=== PATIENT | female | born 1970 | race Caucasian/White ===

== ENCOUNTER → 2017-10-20 | Outpatient (CLI) | payer OTHER, SELFPAY | PROVIDERS: Visit Provider Emergency Medicine | DX: Z79.899 Other long term (current) drug therapy (principal) | CPT/HCPCS: 80305; 80346; 80364; G0480 ==

== ENCOUNTER → 2017-11-24 14:59 | Outpatient (REF) | payer OTHER, SELFPAY ==
[2017-11-24 21:30] LABS: Amphetamine/Metha Screen,Urine Negative ng/mL (<1000); Barbiturates Screen,Urine Negative ng/mL (<200); Benzodiazepines Screen,Urine Negative ng/mL (200); Cannabinoid Screen,Urine Negative ng/mL (<50); Cocaine Screen,Urine Negative ng/g (<300); Methadone Screen,Urine Negative ng/mL (<300); Opiate Screen,Urine Positive ng/mL (<300); Phencyclidine Screen,Urine Negative ng/mL (<25)
== END ==
LOC: LAB 14:59
PROVIDERS: Visit Provider Emergency Medicine
DX: Z79.899 Other long term (current) drug therapy (principal)
CPT/HCPCS: 80305

== ENCOUNTER → 2017-12-21 13:37 | Outpatient (REF) | payer OTHER, SELFPAY ==
[2017-12-21 20:18] LABS: Amphetamine/Metha Screen,Urine Negative ng/mL (<1000); Barbiturates Screen,Urine Negative ng/mL (<200); Benzodiazepines Screen,Urine Negative ng/mL (200); Cannabinoid Screen,Urine Negative ng/mL (<50); Cocaine Screen,Urine Negative ng/g (<300); Methadone Screen,Urine Negative ng/mL (<300); Opiate Screen,Urine Negative ng/mL (<300); Phencyclidine Screen,Urine Negative ng/mL (<25)
== END ==
LOC: LAB 13:37
PROVIDERS: Visit Provider Emergency Medicine
DX: Z79.899 Other long term (current) drug therapy (principal)
CPT/HCPCS: 80305

== ENCOUNTER → 2018-01-19 14:11 | Outpatient (REF) | payer OTHER, SELFPAY ==
[2018-01-19 16:11] LABS: Amphetamine/Metha Screen,Urine Negative ng/mL (<1000); Barbiturates Screen,Urine Negative ng/mL (<200); Benzodiazepines Screen,Urine Negative ng/mL (200); Cannabinoid Screen,Urine Negative ng/mL (<50); Cocaine Screen,Urine Negative ng/g (<300); Methadone Screen,Urine Negative ng/mL (<300); Opiate Screen,Urine Positive ng/mL (<300); Phencyclidine Screen,Urine Negative ng/mL (<25)
== END ==
LOC: LAB 14:11
PROVIDERS: Visit Provider Emergency Medicine
DX: Z79.899 Other long term (current) drug therapy (principal)
CPT/HCPCS: 80305

== ENCOUNTER → 2018-03-29 15:02 | Outpatient (REF) | payer OTHER, SELFPAY ==
[2018-03-29 18:53] LABS: Amphetamine/Metha Screen,Urine Negative ng/mL (<1000); Barbiturates Screen,Urine Negative ng/mL (<200); Benzodiazepines Screen,Urine Negative ng/mL (200); Cannabinoid Screen,Urine Negative ng/mL (<50); Cocaine Screen,Urine Negative ng/g (<300); Methadone Screen,Urine Negative ng/mL (<300); Opiate Screen,Urine Negative ng/mL (<300); Phencyclidine Screen,Urine Negative ng/mL (<25)
== END ==
LOC: LAB 15:02
PROVIDERS: Visit Provider Emergency Medicine
DX: Z79.899 Other long term (current) drug therapy (principal)
CPT/HCPCS: 80305

== ENCOUNTER → 2018-04-27 10:26 | Outpatient (REF) | payer OTHER, SELFPAY ==
[2018-04-27 16:16] LABS: Amphetamine/Metha Screen,Urine Negative ng/mL (<1000); Barbiturates Screen,Urine Negative ng/mL (<200); Benzodiazepines Screen,Urine Negative ng/mL (200); Cannabinoid Screen,Urine Negative ng/mL (<50); Cocaine Screen,Urine Negative ng/g (<300); Methadone Screen,Urine Negative ng/mL (<300); Opiate Screen,Urine Negative ng/mL (<300); Phencyclidine Screen,Urine Negative ng/mL (<25)
== END ==
LOC: LAB 10:26
PROVIDERS: Visit Provider Emergency Medicine
DX: Z79.899 Other long term (current) drug therapy (principal)
CPT/HCPCS: 80305

== ENCOUNTER → 2018-05-27 14:57 | Outpatient (REF) | payer OTHER, SELFPAY ==
[2018-05-27 18:52] LABS: Amphetamine/Metha Screen,Urine Negative ng/mL (<1000); Barbiturates Screen,Urine Negative ng/mL (<200); Benzodiazepines Screen,Urine Negative ng/mL (<200); Cannabinoid Screen,Urine Negative ng/mL (<50); Cocaine Screen,Urine Negative ng/mL (<300); Methadone Screen,Urine Negative ng/mL (<300); Opiate Screen,Urine Negative ng/mL (<300); Phencyclidine Screen,Urine Negative ng/mL (<25)
== END ==
LOC: LAB 14:57
PROVIDERS: Visit Provider Emergency Medicine
DX: Z79.899 Other long term (current) drug therapy (principal)
CPT/HCPCS: 80305

== ENCOUNTER → 2018-06-22 15:49 | Outpatient (REF) | payer OTHER, SELFPAY ==
[2018-06-22 19:29] LABS: Amphetamine/Metha Screen,Urine Negative ng/mL (<1000); Barbiturates Screen,Urine Negative ng/mL (<200); Benzodiazepines Screen,Urine Negative ng/mL (<200); Cannabinoid Screen,Urine Negative ng/mL (<50); Cocaine Screen,Urine Negative ng/mL (<300); Methadone Screen,Urine Negative ng/mL (<300); Opiate Screen,Urine Negative ng/mL (<300); Phencyclidine Screen,Urine Negative ng/mL (<25)
== END ==
LOC: LAB 15:49
PROVIDERS: Visit Provider Emergency Medicine
DX: Z79.899 Other long term (current) drug therapy (principal)
CPT/HCPCS: 80305

== ENCOUNTER → 2018-08-16 14:02 | Outpatient (REF) | payer OTHER, SELFPAY ==
[2018-08-16 20:41] LABS: Amphetamine/Metha Screen,Urine Negative ng/mL (<1000); Barbiturates Screen,Urine Negative ng/mL (<200); Benzodiazepines Screen,Urine Negative ng/mL (<200); Cannabinoid Screen,Urine Negative ng/mL (<50); Cocaine Screen,Urine Negative ng/mL (<300); Methadone Screen,Urine Negative ng/mL (<300); Opiate Screen,Urine Negative ng/mL (<300); Phencyclidine Screen,Urine Negative ng/mL (<25)
== END ==
LOC: LAB 14:02
PROVIDERS: Visit Provider Emergency Medicine
DX: Z79.899 Other long term (current) drug therapy (principal)
CPT/HCPCS: 80305

== ENCOUNTER → 2018-09-14 11:16 | Outpatient (CLI) | payer OTHER, SELFPAY ==
[2018-09-15 18:20] LABS: Amphetamine/Metha Screen,Urine Negative ng/mL (<1000); Barbiturates Screen,Urine Negative ng/mL (<200); Benzodiazepines Screen,Urine Negative ng/mL (<200); Cannabinoid Screen,Urine Negative ng/mL (<50); Cocaine Screen,Urine Negative ng/mL (<300); Methadone Screen,Urine Negative ng/mL (<300); Opiate Screen,Urine Positive ng/mL (<300); Phencyclidine Screen,Urine Negative ng/mL (<25)
== END ==
PROVIDERS: Visit Provider Emergency Medicine
DX: Z79.899 Other long term (current) drug therapy (principal)
CPT/HCPCS: 80305

== ENCOUNTER → 2018-10-14 17:58 | Outpatient (CLI) | payer OTHER, SELFPAY ==
[2018-10-14 20:33] LABS: Amphetamine/Metha Screen,Urine Negative ng/mL (<1000); Barbiturates Screen,Urine Negative ng/mL (<200); Benzodiazepines Screen,Urine Negative ng/mL (<200); Cannabinoid Screen,Urine Negative ng/mL (<50); Cocaine Screen,Urine Negative ng/mL (<300); Methadone Screen,Urine Negative ng/mL (<300); Opiate Screen,Urine Positive ng/mL (<300); Phencyclidine Screen,Urine Negative ng/mL (<25)
== END ==
PROVIDERS: Visit Provider Emergency Medicine
DX: Z79.899 Other long term (current) drug therapy (principal)
CPT/HCPCS: 80305

== ENCOUNTER → 2018-11-14 13:18 | Outpatient (CLI) | payer OTHER, SELFPAY ==
[2018-11-15 12:31] LABS: Amphetamine/Metha Screen,Urine Negative ng/mL (<1000); Barbiturates Screen,Urine Negative ng/mL (<200); Benzodiazepines Screen,Urine Negative ng/mL (<200); Cannabinoid Screen,Urine Negative ng/mL (<50); Cocaine Screen,Urine Negative ng/mL (<300); Methadone Screen,Urine Negative ng/mL (<300); Opiate Screen,Urine Positive ng/mL (<300); Phencyclidine Screen,Urine Negative ng/mL (<25)
== END ==
PROVIDERS: Visit Provider Emergency Medicine
DX: Z79.899 Other long term (current) drug therapy (principal)
CPT/HCPCS: 80305

== ENCOUNTER → 2019-03-07 14:44 | Outpatient (CLI) | payer OTHER, SELFPAY ==
[2019-03-07 16:19] LABS: Amphetamine/Metha Screen,Urine Negative ng/mL (<1000); Barbiturates Screen,Urine Negative ng/mL (<200); Benzodiazepines Screen,Urine Negative ng/mL (<200); Cannabinoid Screen,Urine Negative ng/mL (<50); Cocaine Screen,Urine Negative ng/mL (<300); Methadone Screen,Urine Negative ng/mL (<300); Opiate Screen,Urine Negative ng/mL (<300); Phencyclidine Screen,Urine Negative ng/mL (<25)
[2019-03-14 14:19] LABS: Alprazolam Negative (Cutoff=100); Benzodiazepines Negative ng/mL (Cutoff=100); Clonazepam Negative (Cutoff=100); Flurazepam Negative (Cutoff=100); Lorazepam Negative (Cutoff=100); Midazolam Negative (Cutoff=100); Temazepam Negative (Cutoff=100); Triazolam Negative (Cutoff=100)
[2019-03-14 14:31] LABS: Opiates Negative ng/mL (Cutoff=100)
== END ==
PROVIDERS: Visit Provider Emergency Medicine
DX: Z79.899 Other long term (current) drug therapy (principal)
CPT/HCPCS: 80305; 80346; 80361; G0480

== ENCOUNTER → 2019-04-03 07:48 | Outpatient (CLI) | payer OTHER, SELFPAY ==
--- NOTE | 2019-04-03 07:51 | US_ITS ---
US gallbladder HISTORY: ITS.REASON: right upper quad pain ORDERING PHYSICIAN: Keyur Mitchell MD PATIENT AGE: 48 years Comparison: None FINDINGS: PANCREAS: Unremarkable. No obvious mass or abnormal fluid collection. No ductal dilatation LIVER: No focal liver lesions demonstrated. Homogeneous echogenicity. No intrahepatic biliary ductal dilatation evident RIGHT KIDNEY: Unremarkable. Normal size and echogenicity. No hydronephrosis GALLBLADDER: There are multiple gallstones present. No pericholecystic fluid, or biliary dilatation is evident. Common bile duct measures 5 mm. There is mild gallbladder wall thickening measuring up to 4 mm. IMPRESSION: Cholelithiasis with mild gallbladder wall thickening
== END ==
PROVIDERS: PCP Emergency Medicine; Visit Provider Surgery
DX: K82.9 Disease of gallbladder, unspecified (principal)
CPT/HCPCS: 76705

== ENCOUNTER → 2019-04-11 09:57 | Outpatient (CLI) | payer OTHER, SELFPAY ==
[2019-04-11 10:30] LABS: Amylase 65 U/L (25-115); Lipase 102 u/L (73-393)
--- NOTE | 2019-04-11 10:37 | MM_ITS ---
MM Dig screening mamm BI w/CAD CAD Screening COMPARISON: None, this is baseline INDICATION: There is no personal or family history of breast cancer TECHNIQUE: Standard CC and MLO images were obtained. R2 CAD reviewed. FINDINGS: There is a markedly and diffusely dense parenchymal pattern definitely lessening the sensitivity of mammography. There are multiple scattered collections of microcalcifications most of which appear to be typical of sclerosing adenosis. There are scattered benign-appearing microcalcifications as well. However there are 2 areas in each breast which I have circled which appear to have possible indeterminate microcalcifications and recommend patient return for spot compression magnification views of the areas marked on the film. IMPRESSION: Markedly dense parenchymal pattern with multiple micro and macro calcifications in each breast and recommend patient return for additional imaging BI-RADS Category: 0 Need Additional Imaging Evaluation RECOMMENDED FOLLOW-UP: IMM - IMMEDIATE FOLLOW-UP RECOMMENDED (A letter has been sent to the patient regarding results of the study.)
== END ==
PROVIDERS: Surgery; PCP Emergency Medicine; Visit Provider Emergency Medicine
DX: K85.90 Acute pancreatitis without necrosis or infection, unspecified (principal); Z12.31 Encounter for screening mammogram for malignant neoplasm of breast
CPT/HCPCS: 36415; 77067; 82150; 83690

== ENCOUNTER → 2019-04-19 12:56 | Outpatient (CLI) | payer OTHER, SELFPAY ==
--- NOTE | 2019-04-19 12:57 | MM_ITS ---
MM Dig mamm BI DX w/CAD INDICATION: Follow-up abnormal mammogram, calcifications ORDERING PHYSICIAN: Ronal Simmons MD PATIENT AGE: 48 years COMPARISON: 04/11/2019 TECHNIQUE: Mag views are obtained on both sides of the previously noted calcifications FINDINGS: Very dense breast tissue noted decrease in the sensitivity of mammography. Right breast: Mag views were difficult to perform on the right due to patient's inability to be properly positioned. Ultimately, MLO mag views are obtained. There are regional loosely scattered calcifications in the right breast as well as grouped calcifications. No malignant appearing microcalcifications are apparent. No linear or branching calcifications. Left breast: Scattered benign-appearing calcifications as well as scattered clustered calcifications. In the upper outer aspect of the left breast there are multiple areas of clustered calcification. No linear or branching calcifications appearance. Probably benign. IMPRESSION: Probably benign bilateral breast calcifications. Recommend bilateral 6 month follow-up with mag views if tolerable BI-RADS Category: 3 Probably Benign Finding Short Term Follow-up RECOMMENDED FOLLOW-UP: 6M - 6 MONTH FOLLOW-UP (A letter has been sent to the patient regarding results of the study.)
== END ==
PROVIDERS: PCP Emergency Medicine; Visit Provider Emergency Medicine
DX: R92.0 Mammographic microcalcification found on diagnostic imaging of breast (principal)
CPT/HCPCS: 77066

== ENCOUNTER → 2019-05-05 17:44 | Outpatient (CLI) | payer OTHER, SELFPAY ==
[2019-05-05 20:27] LABS: Amphetamine/Metha Screen,Urine Negative ng/mL (<1000); Barbiturates Screen,Urine Negative ng/mL (<200); Benzodiazepines Screen,Urine Negative ng/mL (<200); Cannabinoid Screen,Urine Positive ng/mL (<50); Cocaine Screen,Urine Negative ng/mL (<300); Methadone Screen,Urine Negative ng/mL (<300); Opiate Screen,Urine Negative ng/mL (<300); Phencyclidine Screen,Urine Negative ng/mL (<25)
[2019-05-13 13:10] LABS: Alprazolam Negative (Cutoff=100); Benzodiazepines Negative ng/mL (Cutoff=100); Clonazepam Negative (Cutoff=100); Flurazepam Negative (Cutoff=100); Lorazepam Negative (Cutoff=100); Midazolam Negative (Cutoff=100); Oxymorphone (GC/MS) 317 ng/mL (Cutoff=100); Temazepam Negative (Cutoff=100); Triazolam Negative (Cutoff=100)
[2019-05-14 22:47] LABS: Opiates Negative (Cutoff=100)
== END ==
PROVIDERS: Visit Provider Emergency Medicine
DX: Z79.899 Other long term (current) drug therapy (principal)
CPT/HCPCS: 80305; 80346; 80361; 80365; G0480

== ENCOUNTER → 2019-07-04 16:55 | Outpatient (CLI) | payer OTHER, SELFPAY ==
[2019-07-04 19:41] LABS: Amphetamine/Metha Screen,Urine Negative ng/mL (<1000); Barbiturates Screen,Urine Negative ng/mL (<200); Benzodiazepines Screen,Urine Negative ng/mL (<200); Cannabinoid Screen,Urine Negative ng/mL (<50); Cocaine Screen,Urine Negative ng/mL (<300); Methadone Screen,Urine Negative ng/mL (<300); Opiate Screen,Urine Negative ng/mL (<300); Phencyclidine Screen,Urine Negative ng/mL (<25)
[2019-07-08 04:24] LABS: Alprazolam Negative (Cutoff=100); Benzodiazepines Negative ng/mL (Cutoff=100); Clonazepam Negative (Cutoff=100); Flurazepam Negative (Cutoff=100); Lorazepam Negative (Cutoff=100); Midazolam Negative (Cutoff=100); Temazepam Negative (Cutoff=100); Triazolam Negative (Cutoff=100)
[2019-07-08 18:02] LABS: Opiates Negative ng/mL (Cutoff=100)
== END ==
PROVIDERS: Visit Provider Emergency Medicine
DX: Z79.899 Other long term (current) drug therapy (principal)
CPT/HCPCS: 80305; 80346; 80361; G0480

== ENCOUNTER → 2019-08-30 17:42 | Outpatient (CLI) | payer OTHER, SELFPAY ==
[2019-08-30 18:54] LABS: Amphetamine/Metha Screen,Urine Negative ng/mL (<1000); Barbiturates Screen,Urine Negative ng/mL (<200); Benzodiazepines Screen,Urine Negative ng/mL (<200); Cannabinoid Screen,Urine Negative ng/mL (<50); Cocaine Screen,Urine Negative ng/mL (<300); Methadone Screen,Urine Negative ng/mL (<300); Opiate Screen,Urine Negative ng/mL (<300); Phencyclidine Screen,Urine Negative ng/mL (<25)
== END ==
PROVIDERS: Visit Provider Emergency Medicine
DX: Z79.899 Other long term (current) drug therapy (principal)
CPT/HCPCS: 80305

== ENCOUNTER → 2019-10-16 14:20 | Outpatient (CLI) | payer OTHER, SELFPAY ==
[2019-10-16 16:24] LABS: Amphetamine/Metha Screen,Urine Negative ng/mL (<1000); Barbiturates Screen,Urine Negative ng/mL (<200); Benzodiazepines Screen,Urine Negative ng/mL (<200); Cannabinoid Screen,Urine Negative ng/mL (<50); Cocaine Screen,Urine Negative ng/mL (<300); Methadone Screen,Urine Negative ng/mL (<300); Opiate Screen,Urine Positive ng/mL (<300); Phencyclidine Screen,Urine Negative ng/mL (<25)
== END ==
PROVIDERS: Visit Provider Emergency Medicine
DX: Z79.899 Other long term (current) drug therapy (principal)
CPT/HCPCS: 80305

== ENCOUNTER → 2019-12-18 16:46 | Outpatient (CLI) | payer MEDICAID, SELFPAY ==
[2019-12-18 19:11] LABS: Amphetamine/Metha Screen,Urine Negative ng/mL (<1000); Barbiturates Screen,Urine Negative ng/mL (<200); Benzodiazepines Screen,Urine Positive ng/mL (<200); Cannabinoid Screen,Urine Negative ng/mL (<50); Cocaine Screen,Urine Negative ng/mL (<300); Methadone Screen,Urine Negative ng/mL (<300); Opiate Screen,Urine Positive ng/mL (<300); Phencyclidine Screen,Urine Negative ng/mL (<25)
== END ==
PROVIDERS: Visit Provider Emergency Medicine
DX: Z79.899 Other long term (current) drug therapy (principal)
CPT/HCPCS: 80305

== ENCOUNTER → 2020-04-08 14:59 | Outpatient (CLI) | payer MEDICAID, SELFPAY ==
[2020-04-08 15:31] LABS: Basophils % 0.3 % (0.1-2.0); Eosinophils # 0.2 K/mm3 (0.0-0.4); Eosinophils % 2.7 % (0.1-12.0); Hematocrit 42.8 % (37.0-47.0); Lymphocytes # 1.8 K/mm3 (0.7-4.5); Lymphocytes % 24.8 % (10-50); Mean Corpuscular HGB Conc 32.8 g/dL (31.8-35.4); Mean Corpuscular Hemoglobin 33.3 pg (27.0-31.2); Mean Corpuscular Volume 101.5 fl (81-99); Monocytes # 0.3 K/mm3 (0.1-1.0); Monocytes % 4.5 % (1.7-9.3); Neutrophils % 67.8 % (37.0-80.0); Platelet Count 292 K/mm3 (142-424); Red Blood Count 4.22 M/mm3 (4.20-5.40); Red Cell Distribution Width 13.6 % (11.5-17.5); White Blood Count 7.3 K/mm3 (4.8-10.8)
[2020-04-08 15:48] LABS: Chloride 106 mmol/L (98-107); Potassium 4.4 mmoL/L (3.5-5.1); Sodium 138 mmol/L (136-145)
[2020-04-08 15:51] LABS: Albumin/Globulin Ratio 1.5 (1.1-1.8); Alkaline Phosphatase 111 U/L (38-126); Anion Gap 11.4 mEq/L (5-15); Aspartate Amino Transferase 16 U/L (14-36); Bilirubin,Total 0.3 mg/dl (0.2-1.3); Blood Urea Nitrogen 12 mg/dl (7-17); Calcium 9.1 mg/dl (8.4-10.2); Carbon Dioxide 25 mmol/L (22.0-30.0); Cholesterol 180 mg/dl (140-200); Estimated Glomerular Filt Rate 131 ml/min (>60); GFR (African American) 159 ML/MIN (>60); Globulin 2.7 g/dL (1.3-3.2); Glucose 89 mg/dl (74-100); Total Protein,Serum 6.7 g/dl (6.3-8.2); Triglycerides 131 mg/dl (30-150); VLDL Cholesterol 26 mg/dL (0-40)
[2020-04-08 15:52] LABS: HDL Cholesterol 45 mg/dl (40-60)
[2020-04-08 16:03] LABS: Direct LDL Cholesterol 131.58 mg/dL (100-129)
[2020-04-08 16:07] LABS: Alanine Aminotransferase 5 U/L (12-78)
[2020-04-08 16:08] LABS: Free T4 (Free Thyroxine) 0.85 ng/dl (0.78-2.19)
[2020-04-10 09:40] LABS: Vitamin D 25 Hydroxy 10.1 ng/mL (30.0-100.0)
[2020-04-12 17:10] LABS: Folate 3.9 ng/mL (>3.0); Vitamin B12 187 pg/mL (232-1245)
== END ==
PROVIDERS: Physician Assistant; Visit Provider Emergency Medicine
DX: R10.9 Unspecified abdominal pain (principal); R71.8 Other abnormality of red blood cells; E55.9 Vitamin D deficiency, unspecified; Z79.899 Other long term (current) drug therapy
CPT/HCPCS: 80053; 80061; 82607; 82652; 82746; 84439; 84443; 85025

== ENCOUNTER → 2021-05-23 17:43 | Outpatient (CLI) | payer MEDICAID, SELFPAY ==
[2021-05-23 18:30] LABS: Amphetamine/Metha Screen,Urine Negative ng/ml (<1000)
[2021-05-23 18:31] LABS: Barbiturates Screen,Urine Negative ng/ml (<200); Benzodiazepines Screen,Urine Negative ng/ml (<200)
[2021-05-23 18:32] LABS: Cannabinoid Screen,Urine Negative ng/ml (<50)
[2021-05-23 18:33] LABS: Cocaine Screen,Urine Negative ng/ml (<300); Methadone Screen,Urine Negative ng/ml (<300)
[2021-05-23 18:36] LABS: Phencyclidine Screen,Urine Negative ng/ml (<25)
[2021-05-23 18:55] LABS: Opiate Screen,Urine Negative ng/ml (<300)
== END ==
PROVIDERS: Visit Provider Emergency Medicine
DX: Z79.899 Other long term (current) drug therapy (principal)
CPT/HCPCS: 80305

== ENCOUNTER → 2022-03-27 16:15 | Outpatient (CLI) | payer MEDICAID, SELFPAY ==
[2022-03-27 13:34] LABS: Amphetamine/Metha Screen,Urine Negative ng/ml (<1000); Barbiturates Screen,Urine Negative ng/ml (<200)
[2022-03-27 13:36] LABS: Benzodiazepines Screen,Urine Negative ng/ml (<200)
[2022-03-27 13:37] LABS: Cannabinoid Screen,Urine Negative ng/ml (<50)
[2022-03-27 13:38] LABS: Cocaine Screen,Urine Negative ng/ml (<300); Methadone Screen,Urine Negative ng/ml (<300)
[2022-03-27 13:39] LABS: Opiate Screen,Urine Negative ng/ml (<300); Phencyclidine Screen,Urine Negative ng/ml (<25)
== END ==
PROVIDERS: Visit Provider Emergency Medicine
DX: F41.9 Anxiety disorder, unspecified (principal); M54.9 Dorsalgia, unspecified; Z79.899 Other long term (current) drug therapy
CPT/HCPCS: 80305

== ENCOUNTER → 2022-10-07 15:00 | Outpatient (CLI) | payer MEDICAID, SELFPAY ==
[2022-10-07 18:59] LABS: Amphetamine/Metha Screen,Urine Negative ng/ml (<1000)
[2022-10-07 19:00] LABS: Benzodiazepines Screen,Urine Negative ng/ml (<200)
[2022-10-07 19:02] LABS: Cannabinoid Screen,Urine Negative ng/ml (<50); Cocaine Screen,Urine Negative ng/ml (<300)
[2022-10-07 19:03] LABS: Methadone Screen,Urine Negative ng/ml (<300)
[2022-10-07 19:04] LABS: Opiate Screen,Urine Negative ng/ml (<300); Phencyclidine Screen,Urine Negative ng/ml (<25)
[2022-10-07 19:21] LABS: Barbiturates Screen,Urine Negative ng/ml (<200)
== END ==
PROVIDERS: PCP Emergency Medicine; Visit Provider Emergency Medicine
DX: M54.9 Dorsalgia, unspecified (principal)
CPT/HCPCS: 80305

== ENCOUNTER → 2023-02-10 20:07 | Outpatient (CLI) | payer MEDICAID, SELFPAY ==
[2023-02-10 19:26] LABS: Amphetamine/Metha Screen,Urine Negative ng/ml (<1000); Barbiturates Screen,Urine Negative ng/ml (<200)
[2023-02-10 19:27] LABS: Benzodiazepines Screen,Urine Negative ng/ml (<200)
[2023-02-10 19:28] LABS: Cannabinoid Screen,Urine Negative ng/ml (<50); Cocaine Screen,Urine Negative ng/ml (<300)
[2023-02-10 19:29] LABS: Methadone Screen,Urine Negative ng/ml (<300); Opiate Screen,Urine Positive ng/ml (<300)
[2023-02-10 19:30] LABS: Phencyclidine Screen,Urine Negative ng/ml (<25)
== END ==
PROVIDERS: PCP Emergency Medicine; Visit Provider Emergency Medicine
DX: Z79.899 Other long term (current) drug therapy (principal)
CPT/HCPCS: 80305

== ENCOUNTER → 2023-07-16 11:45 | Outpatient (CLI) | payer MEDICAID, SELFPAY ==
[2023-07-16 13:36] LABS: Basophils % 0.3 % (0.1-2.0); Eosinophils # 0.1 K/mm3 (0.0-0.4); Eosinophils % 1.2 % (0.1-12.0); Hematocrit 44.2 % (37.0-47.0); Hemoglobin 14.3 g/dL (12.2-16.2); Lymphocytes % 37.7 % (10-50); Mean Corpuscular HGB Conc 32.3 g/dL (31.8-35.4); Mean Corpuscular Hemoglobin 31.4 pg (27.0-31.2); Mean Corpuscular Volume 97.2 fl (81-99); Mean Platelet Volume 8.7 fl (7.4-10.4); Monocytes # 0.4 K/mm3 (0.1-1.0); Monocytes % 6.8 % (1.7-9.3); Neutrophils # 2.9 K/mm3 (1.8-7.8); Platelet Count 308 K/mm3 (142-424); Red Blood Count 4.54 M/mm3 (4.20-5.40); Red Cell Distribution Width 13.5 % (11.5-17.5); White Blood Count 5.4 K/mm3 (4.8-10.8)
[2023-07-16 13:42] LABS: Alanine Aminotransferase 14 U/L (12-78); Albumin Level 4.6 g/dl (3.5-5.0); Albumin/Globulin Ratio 1.7 (1.1-1.8); Alkaline Phosphatase 119 U/L (38-126); Anion Gap 18.5 mEq/L (5-15); Aspartate Amino Transferase 22 U/L (14-36); Bilirubin,Total 0.2 mg/dl (0.2-1.3); Blood Urea Nitrogen 8 mg/dl (7-17); Calcium 9.3 mg/dl (8.4-10.2); Carbon Dioxide 27 mmol/L (22.0-30.0); Chloride 102 mmol/L (98-107); Chol/HDL Ratio 3.9 (1-3.5); Cholesterol 174 mg/dl (140-200); Estimated Glomerular Filt Rate 130 ml/min (>60); GFR (African American) 157 ML/MIN (>60); Globulin 2.7 g/dL (1.3-3.2); Glucose 87 mg/dl (74-100); HDL Cholesterol 45 mg/dl (40-60); Potassium 4.5 mmoL/L (3.5-5.1); Sodium 143 mmol/L (136-145); Total Protein,Serum 7.3 g/dl (6.3-8.2); Triglycerides 154 mg/dl (30-150); VLDL Cholesterol 31 mg/dL (0-40)
[2023-07-16 13:52] LABS: Direct LDL Cholesterol 91.72 mg/dL (100-129)
[2023-07-16 13:57] LABS: 25-OH Vitamin D, Total 20.7 ng/mL (30-100)
== END ==
PROVIDERS: PCP Emergency Medicine; Visit Provider Emergency Medicine
DX: F41.9 Anxiety disorder, unspecified (principal); E55.9 Vitamin D deficiency, unspecified; Z79.899 Other long term (current) drug therapy
CPT/HCPCS: 80053; 80061; 82306; 84443; 85025

== ENCOUNTER 2023-11-10 12:20 | Outpatient (CLI) | payer MEDICAID, SELFPAY ==
[2023-11-10 16:21] LABS: Amphetamine/Metha Screen,Urine Negative ng/ml (<1000); Barbiturates Screen,Urine Negative ng/ml (<200); Benzodiazepines Screen,Urine Negative ng/ml (<200); Cannabinoid Screen,Urine Negative ng/ml (<50); Cocaine Screen,Urine Negative ng/ml (<300); Methadone Screen,Urine Negative ng/ml (<300); Opiate Screen,Urine Negative ng/ml (<300); Phencyclidine Screen,Urine Negative ng/ml (<25)
[2023-11-15 23:31] LABS: Alprazolam Negative (Cutoff=100); Benzodiazepines Negative ng/mL (Cutoff=100); Clonazepam Negative (Cutoff=100); Flurazepam Negative (Cutoff=100); Lorazepam Negative (Cutoff=100); Midazolam Negative (Cutoff=100); Opiates Negative (Cutoff=100); Oxycodone (GC/MS) 839 ng/mL (Cutoff=100); Oxymorphone (GC/MS) 288 ng/mL (Cutoff=100); Temazepam Negative (Cutoff=100); Triazolam Negative (Cutoff=100)
[2023-11-17 10:34] LABS: Gabapentin,Urine 193.8 ug/mL (.)
== END 2023-11-10 23:59 ==
LOC: LAB.DROPOF 12:21
PROVIDERS: PCP Nurse Practitioner Family; Visit Provider Nurse Practitioner Family
DX: Z79.899 Other long term (current) drug therapy (principal); M79.2 Neuralgia and neuritis, unspecified
CPT/HCPCS: 80307; 80346; 80361; 80365; G0480

== ENCOUNTER 2023-12-16 15:01 | Outpatient (CLI) | payer MEDICAID, SELFPAY ==
--- NOTE | 2023-12-16 15:04 | XR_ITS ---
FINAL REPORT CLINICAL HISTORY: R Hip pain, patient is paraplegic, confined to wheelchair due to AVM rupture in 1992 she stated. FINDINGS: RIGHT HIP Three views were obtained. There is no acute fracture or dislocation. There is chronic deformity of the proximal right femur. There are mild degenerative changes of both hips. There is chronic or congenital deformity in the lower pelvis with absent inferior pubic rami. 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 IMPRESSION: Chronic changes as detailed above. Reviewed, Interpreted and Dictated by Dom Steen III, MD Transcribed by Rachel Reardon Authenticated and . [facility]
--- NOTE | 2023-12-16 15:04 | XR_ITS ---
FINAL REPORT CLINICAL HISTORY: Lumbar pain, paraplegic confined to wheelchair. AVM in 1992 that ruptured. FINDINGS: LUMBAR SPINE Three views demonstrate no acute fracture. There are mild and moderate degenerative changes of the lumbar spine. There is kyphosis of the thoracolumbar junction with 11 mm of retrolisthesis of T12 on L1. There is disc space narrowing at T12-L1. IMPRESSION: Degenerative changes as detailed above. Reviewed, Interpreted and Dictated by Dom Steen III, MD Transcribed by Rachel Reardon Authenticated and [facility]
== END 2023-12-16 23:59 ==
LOC: RAD 15:02
PROVIDERS: PCP Nurse Practitioner Family; Visit Provider Nurse Practitioner Family
DX: M25.551 Pain in right hip (principal); M25.552 Pain in left hip; G82.20 Paraplegia, unspecified
CPT/HCPCS: 72100; 73502

== ENCOUNTER 2024-03-03 14:43 | Outpatient (CLI) | payer MEDICAID, SELFPAY ==
--- NOTE | 2024-03-03 14:49 | XR_ITS ---
FINAL REPORT CLINICAL HISTORY: Bilat shoulder pain FINDINGS: RIGHT SHOULDER 2 views demonstrate no acute fracture or dislocation. The visualized joint spaces are normally aligned. The soft tissues are unremarkable. IMPRESSION: No acute process. Reviewed, Interpreted and Dictated by Patrick Amador MD Transcribed by Arlene Gasca Authenticated and [facility]
--- NOTE | 2024-03-03 14:49 | XR_ITS ---
FINAL REPORT CLINICAL HISTORY: Bilat shoulder pain FINDINGS: LEFT SHOULDER 2 views of the left shoulder were obtained. There is no acute fracture or dislocation. Visualized joint spaces are normally aligned. Soft tissues are unremarkable. IMPRESSION: No acute bony abnormality. Reviewed, Interpreted and Dictated by Patrick Amador MD Transcribed by Arlene Gasca Authenticated and [facility]
== END 2024-03-03 23:59 | disposition home or self-care (01) ==
LOC: RAD 14:43
PROVIDERS: PCP Nurse Practitioner Family; Visit Provider Nurse Practitioner Family
DX: M25.511 Pain in right shoulder (principal); M25.512 Pain in left shoulder
CPT/HCPCS: 73030

== ENCOUNTER 2024-08-24 12:59 | Outpatient (CLI) | payer MEDICAID, SELFPAY ==
--- NOTE | 2024-08-24 13:03 | MR_ITS ---
PROCEDURE INFORMATION: Exam: MR Lumbar Spine Without Contrast Exam date and time: 08/24/2024 1:03 PM Age: 53 years old Clinical indication: Low back pain; Additional info: Spinal arteriovenous malformation. Tingling bilateral feet TECHNIQUE: Imaging protocol: Magnetic resonance imaging of the lumbar spine without contrast. COMPARISON: CR XR LUMBAR SPINE 2-3V 12/16/2023 3:32 PM FINDINGS: Bones/joints: There is marked focal kyphosis identified at T12-L1. There is a moderate chronic appearing L1 compression deformity. There is a mild chronic appearing L2 compression deformity. There is a chronic [id number] T12 compression deformity and a mild chronic appearing T11 compression deformity. There is grade 1 retrolisthesis of T12 on L1 and grade 1 to grade 2 retrolisthesis of L1 on L2. There is grade 1 anterolisthesis of L5 on S1. There is severe loss of disc height noted at T12-L1 and L1-L2 with erosive changes along the endplates. Spinal cord: There appears to be atrophy of the distal cord. T12-L1: There is moderate to severe spinal canal stenosis secondary to diffuse disc osteophyte ridging. There is severe bilateral neural foraminal stenosis secondary to foraminal disc osteophyte ridging. L1-L2: Laminectomy changes are identified. There is moderate to severe spinal canal stenosis secondary to extensive osseous ridging and facet hypertrophy. Expected laminectomy changes are identified. There is severe bilateral neural foraminal stenosis. L2-L3: There is no significant spinal canal stenosis. There is mild bilateral neural foraminal stenosis secondary to foraminal disc osteophyte bulging and facet hypertrophy. L3-L4: The spinal canal and neural foramina appear patent. L4-L5: The spinal canal and neural foramina appear patent. L5-S1: The spinal canal and neural foramina appear patent. Soft tissues: There is atrophy of the paraspinal musculature. IMPRESSION: 1. Severe kyphosis centered at T12-L1 with multiple chronic appearing compression deformities. 2. Moderate to severe spinal canal stenosis at T12-L1 and L1-L2. Please see above for specific findings at each level. 3. Atrophy of the distal cord.
== END 2024-08-24 23:59 | disposition home or self-care (01) ==
LOC: RAD 12:59
PROVIDERS: PCP Nurse Practitioner Family; Visit Provider Anesthesiology Pain Medicine
DX: Q28.8 Other specified congenital malformations of circulatory system (principal)
CPT/HCPCS: 72148

== ENCOUNTER 2025-03-13 19:27 | Outpatient (CLI) | payer MEDICAID, SELFPAY ==
[2025-03-13 19:49] LABS: Basophils % 0.4 % (0.1-2.0); Eosinophils # 0.1 Kmm3 (0.0-0.4); Eosinophils % 1.3 % (0.1-12.0); Hematocrit 38.4 % (37.0-47.0); Immature Granulocytes # 0.02 10^3uL; Immature Granulocytes % 0.4 %; Lymphocytes # 1.3 K/mm3 (0.7-4.5); Lymphocytes % 28.8 % (10-50); Mean Corpuscular HGB Conc 33.9 g/dL (31.8-35.4); Mean Corpuscular Hemoglobin 31.6 pg (27.0-31.2); Mean Corpuscular Volume 93.4 fl (81-99); Mean Platelet Volume 10.6 fl (7.4-10.4); Monocytes # 0.3 K/mm3 (0.1-1.0); Monocytes % 6.3 % (1.7-9.3); Neutrophils # 2.9 K/mm3 (1.8-7.8); Neutrophils % 62.8 % (37.0-80.0); Nucleated Red Blood Cells # 0 10^3/uL; Nucleated Red Blood Cells % 0 %; Platelet Count 192 K/mm3 (142-424); Red Blood Count 4.11 M/mm3 (4.20-5.40); Red Cell Distribution Width 12.2 % (11.5-17.5); Red Cell Distribution Width-SD 42.2 fL; White Blood Count 4.6 K/mm3 (4.8-10.8)
[2025-03-13 19:52] LABS: Albumin Level 4.6 g/dl (3.5-5.0); Chloride 105 mmol/L (98-107); Sodium 135 mmol/L (136-145)
[2025-03-13 19:53] LABS: Potassium 5.4 mmoL/L (3.5-5.1)
[2025-03-13 19:55] LABS: Alanine Aminotransferase 13 U/L (12-78); Albumin/Globulin Ratio 1.8 (1.1-1.8); Alkaline Phosphatase 77 U/L (38-126); Anion Gap 11.4 mEq/L (5-15); Aspartate Amino Transferase 36 U/L (14-36); Bilirubin,Total 0.8 mg/dl (0.2-1.3); Blood Urea Nitrogen 12 mg/dl (7-17); Carbon Dioxide 24 mmol/L (22.0-30.0); Cholesterol 171 mg/dl (140-200); Estimated Glomerular Filt Rate 166 ml/min (>60); GFR (African American) 201 ML/MIN (>60); Globulin 2.5 g/dL (1.3-3.2); Total Protein,Serum 7.1 g/dl (6.3-8.2); Triglycerides 48 mg/dl (30-150); VLDL Cholesterol 10 mg/dL (0-40)
[2025-03-13 19:56] LABS: Chol/HDL Ratio 2.9 (1-3.5); Glucose 85 mg/dl (74-100); HDL Cholesterol 60 mg/dl (40-60)
[2025-03-13 20:07] LABS: Direct LDL Cholesterol 88.22 mg/dL (100-129)
[2025-03-13 20:13] LABS: 25-OH Vitamin D, Total 28.1 ng/mL (30-100)
== END 2025-03-13 23:59 | disposition home or self-care (01) ==
LOC: LAB.DROPOF 19:29
PROVIDERS: PCP Nurse Practitioner Family; Visit Provider Nurse Practitioner Family
DX: E03.9 Hypothyroidism, unspecified (principal); E55.9 Vitamin D deficiency, unspecified
CPT/HCPCS: 80053; 80061; 82306; 84443; 85025